=== PATIENT | female | born 1990 | race Caucasian/White ===

== ENCOUNTER 2019-11-02 11:38 | Emergency (ER) | payer OTHER ==
[~2019-11-02] VITALS: Ht 160 cm; Wt 54.4 kg
[~2019-11-02 11:38] MED LIST: Esgic Tablet1 EACH PO; GABA300 PO; LAMO100 PO; PROM25 PO; TOPI25; Zyprexa10 MG PO
[2019-11-02] MEDS ORDERED: ACYC200 PO (11:58)
[2019-11-02 12:23] LABS: BASOPHILS ABSOLUTE AUTO 0.09 K/mm3 (0.00-0.23); BASOPHILS PERCENT AUTO 1 % (0-2); EOSINOPHILS ABSOLUTE AUTO 0.13 K/mm3 (0.00-0.68); EOSINOPHILS PERCENT AUTO 1 % (0-6); Hematocrit 42.3 % (33.0-51.0); Hemoglobin 14.7 g/dL (11.5-16.0); IMMATURE GRAN ABSOLUTE AUTO 0.02 K/mm3 (0.00-0.10); IMMATURE GRAN PERCENT AUTO 0 % (0-1); LYMPHOCYTES ABSOLUTE AUTO 2.63 K/mm3 (0.84-5.20); LYMPHOCYTES PERCENT AUTO 28 % (21-46); MONOCYTES ABSOLUTE AUTO 0.55 K/mm3 (0.16-1.47); MONOCYTES PERCENT AUTO 6 % (4-13); Mean Corpuscular HGB Conc 34.8 g/dL (31.5-36.5); Mean Corpuscular Volume 92 fL (80-100); Mean Platelet Volume 9.6 fL (9.1-12.4); NEUTROPHILS ABSOLUTE AUTO 5.95 K/mm3 (1.96-9.15); NEUTROPHILS PERCENT AUTO 63 % (41-73); Platelet Count 340 K/mm3 (150-400); RDW Coefficient Variation 11.7 % (11.7-14.2); RDW Standard Deviation 39.7 fL (35.1-46.3); White Blood Cell Count 9.37 K/mm3 (4.00-11.30)
[2019-11-02 12:41] LABS: Alanine Aminotransfer (ALT/SGP 52 U/L (12-78); Albumin, Blood 4.4 g/dL (3.4-5.0); Albumin/Globulin Ratio 1.4 (0.8-1.8); Alk Phos 48 U/L (50-136); Anion Gap 10 mmol/L (6-16); Aspartate Aminotrans (AST/SGOT 28 U/L (12-37); Beta HCG, Quantitative, Serum <1 mIU/mL (0-3); Bilirubin, Total 0.7 mg/dL (0.1-1.0); Blood Urea Nitrogen 11 mg/dL (8-24); Bun/Creatinine Ratio 13.8 (12.0-20.0); CO2, Blood 23 mmol/L (21-32); Calcium, Blood 9.1 mg/dL (8.5-10.1); Chloride, Blood 103 mmol/L (98-108); Globulin, Blood 3.1 g/dL (2.2-4.0); Glomerular Filtration Rate >60 (60-); Glucose, Blood 82 mg/dL (70-99); Potassium, Blood 3.6 mmol/L (3.5-5.5); Sodium, Blood 136 mmol/L (136-145); Total Protein, Blood 7.5 g/dL (6.4-8.2)
[2019-11-02 12:49] LABS: Source, Urine Clean Catch
[2019-11-02 12:55] LABS: Appearance, Urine Clear (Clear); Bilirubin, Urine Neg (Neg); Blood, Urine 1+ (Neg); Color, Urine Yellow (P-Yellow); Glucose Qualitative, Urine Neg (Neg); Ketones, Urine Neg (Neg); Leukocyte Esterase, Urine Neg (Neg); Nitrite, Urine Neg (Neg); Protein, Urine Neg (Neg); Specific Gravity, Urine 1.005 (1.003-1.022); Urobilinogen, Urine NORM (Normal)
[2019-11-02 13:07] LABS: Bacteria Rare /hpf; Red Blood Cells, Urine 0-2 /hpf (0-2); Squamous Epithelial Cells Few /hpf (Few); White Blood Cells, Urine 0-2 /hpf (0-5)
[2019-11-02] MEDS ORDERED: Vitamin B Comple1 EA PO (13:09)
[2019-11-02] MEDS ORDERED: MELA3 PO (13:09)
[2019-11-02] MEDS ORDERED: Hair, Skin & N1 EACH PO (13:09)
[2019-11-02] MEDS ORDERED: MAGN84 PO (13:09)
== END 2019-11-02 16:05 | disposition home or self-care (01) ==
LOC: ER 11:38
PROVIDERS: Physician Assistant
DX: R19.7 Diarrhea, unspecified (principal); R10.30 Lower abdominal pain, unspecified; F17.210 Nicotine dependence, cigarettes, uncomplicated
CPT/HCPCS: 36415; 76770; 80053; 81001; 84702; 84703; 85025; 96360; 96361; 99284-25; J7030

== ENCOUNTER 2022-03-09 14:31 | Emergency (ER) | payer OTHER ==
[~2022-03-09] VITALS: Ht 170.2 cm; Wt 74.8 kg
[~2022-03-09 14:31] MED LIST changes: +ACYC200 PO; +Hair, Skin & N1 EACH PO; +MAGN84 PO; +MELA3 PO; +Vitamin B Comple1 EA PO
[2022-03-09] MEDS ORDERED: Xanax0.5 MG PO (16:05)
[2022-03-09] MEDS ORDERED: TRAZ50 PO (16:05)
== END 2022-03-09 16:20 | disposition home or self-care (01) ==
LOC: ER 14:31
DX: F41.0 Panic disorder [episodic paroxysmal anxiety] (principal); F17.210 Nicotine dependence, cigarettes, uncomplicated; Z79.899 Other long term (current) drug therapy; G47.00 Insomnia, unspecified
CPT/HCPCS: 99283

== ENCOUNTER 2022-11-17 15:29 | Emergency (ER) | payer OTHER ==
[~2022-11-17] VITALS: Ht 160 cm; Wt 52.2 kg
[~2022-11-17 15:29] MED LIST changes: +TRAZ50 PO; +Xanax0.5 MG PO
[2022-11-17 15:45] VITALS: BP 108/80
[2022-11-17] MEDS ORDERED: ONDA4ODT MM (18:59)
[2022-11-17] MEDS ORDERED: LORA.5 PO (18:59)
== END 2022-11-17 19:20 | disposition home or self-care (01) ==
LOC: ER 15:29
DX: F41.0 Panic disorder [episodic paroxysmal anxiety] (principal); Z79.899 Other long term (current) drug therapy; F17.210 Nicotine dependence, cigarettes, uncomplicated
CPT/HCPCS: 99282; A9270

== ENCOUNTER 2023-04-26 23:26 | Observation (INO) | payer OTHER ==
[~2023-04-26] VITALS: Ht 170.2 cm; Wt 49.9 kg
[~2023-04-26 23:26] MED LIST changes: +LORA.5 PO; +ONDA4ODT MM
[2023-04-27 00:07] LABS: BASOPHILS ABSOLUTE AUTO 0.15 K/mm3 (0.00-0.23); BASOPHILS PERCENT AUTO 1 % (0-2); EOSINOPHILS ABSOLUTE AUTO 0.43 K/mm3 (0.00-0.68); EOSINOPHILS PERCENT AUTO 3 % (0-6); Hemoglobin 13.5 g/dL (11.5-16.0); IMMATURE GRAN ABSOLUTE AUTO 0.04 K/mm3 (0.00-0.10); IMMATURE GRAN PERCENT AUTO 0 % (0-1); LYMPHOCYTES ABSOLUTE AUTO 2.44 K/mm3 (0.84-5.20); LYMPHOCYTES PERCENT AUTO 16 % (21-46); MONOCYTES PERCENT AUTO 8 % (4-13); Mean Corpuscular HGB 31.4 pg (26.0-34.0); Mean Corpuscular HGB Conc 34.6 g/dL (31.5-36.5); Mean Corpuscular Volume 91 fL (80-100); Mean Platelet Volume 9.5 fL (9.1-12.4); NEUTROPHILS ABSOLUTE AUTO 10.97 K/mm3 (1.96-9.15); NEUTROPHILS PERCENT AUTO 72 % (41-73); Platelet Count 394 K/mm3 (150-400); RDW Coefficient Variation 11.9 % (11.7-14.2); RDW Standard Deviation 39.2 fL (35.1-46.3); White Blood Cell Count 15.23 K/mm3 (4.00-11.30)
[2023-04-27 00:29] LABS: Ethanol (Alcohol), Blood, Med <3 mg/dL; Salicylate <1.7 mg/dL (2.8-20.0)
[2023-04-27 00:33] LABS: Acetaminophen, Random <2.0 ug/mL (10.0-30.0); Alanine Aminotransfer (ALT/SGP 26 U/L (12-78); Albumin, Blood 3.9 g/dL (3.4-5.0); Albumin/Globulin Ratio 1.2 (0.8-1.8); Alk Phos 54 U/L (50-136); Anion Gap 5 mmol/L (6-16); Aspartate Aminotrans (AST/SGOT 25 U/L (12-37); Bilirubin, Total 0.3 mg/dL (0.1-1.0); Blood Urea Nitrogen 18 mg/dL (8-24); Bun/Creatinine Ratio 16.2 (12.0-20.0); CO2, Blood 25 mmol/L (21-32); Calcium, Blood 9.1 mg/dL (8.5-10.1); Chloride, Blood 113 mmol/L (98-108); Creatinine, Blood 1.11 mg/dL (0.40-1.00); Globulin, Blood 3.3 g/dL (2.2-4.0); Glomerular Filtration Rate 66 (60-); Glucose, Blood 102 mg/dL (70-99); Sodium, Blood 143 mmol/L (136-145); Total Protein, Blood 7.2 g/dL (6.4-8.2)
[2023-04-27 00:48] LABS: Source, Urine Fem Cath
[2023-04-27 00:52] LABS: Bilirubin, Urine Neg (Neg); Blood, Urine Neg (Neg); Glucose Qualitative, Urine Neg (Neg); Ketones, Urine Neg (Neg); Leukocyte Esterase, Urine 1+ (Neg); Nitrite, Urine Neg (Neg); Protein, Urine 1+ (Neg); Specific Gravity, Urine 1.015 (1.003-1.022); Urobilinogen, Urine NORM (Normal)
[2023-04-27 01:06] LABS: Appearance, Urine Clear (Clear); Color, Urine Yellow (P-Yellow)
[2023-04-27 01:08] LABS: Bacteria Rare /hpf; Red Blood Cells, Urine Not Seen /hpf (0-2); Squamous Epithelial Cells Few /hpf (Few); White Blood Cells, Urine 0-2 /hpf (0-5)
[2023-04-27 01:18] LABS: U Amphetamine Screen DETECTED; U Barbituate Screen Not Detected; U Benzodiazapine Screen DETECTED; U Buprenorphine Screen Not Detected; U Cannabinoids Screen DETECTED; U Cocaine Screen Not Detected; U Methadone Screen Not Detected; U Methamphetamine Screen DETECTED; U Opiates Screen DETECTED; U Oxycodone Screen Not Detected; U Phencyclidine Screen Not Detected
[2023-04-27 08:15] VITALS: BP 106/60
== END 2023-04-27 17:03 | disposition home or self-care (01) ==
LOC: ER 23:26 → EOR 23:27
PROVIDERS: ADMIT Student in an Organized Health Care Education/Training Program
DX: F15.221 Other stimulant dependence with intoxication delirium (principal); R45.851 Suicidal ideations; F12.90 Cannabis use, unspecified, uncomplicated; F11.90 Opioid use, unspecified, uncomplicated; Z79.899 Other long term (current) drug therapy
CPT/HCPCS: 80053; 81001; 81025; 85025; 96372; 99285; G0378; G0480; J1630; J2060; P9612

== ENCOUNTER 2023-05-01 09:22 | Emergency (ER) | payer OTHER ==
[~2023-05-01] VITALS: Ht 162.6 cm; Wt 52.2 kg
[2023-05-01 10:20] LABS: BASOPHILS ABSOLUTE AUTO 0.11 K/mm3 (0.00-0.23); BASOPHILS PERCENT AUTO 2 % (0-2); EOSINOPHILS PERCENT AUTO 3 % (0-6); Hematocrit 41.3 % (33.0-51.0); Hemoglobin 14.1 g/dL (11.5-16.0); IMMATURE GRAN ABSOLUTE AUTO 0.01 K/mm3 (0.00-0.10); IMMATURE GRAN PERCENT AUTO 0 % (0-1); LYMPHOCYTES ABSOLUTE AUTO 2.25 K/mm3 (0.84-5.20); LYMPHOCYTES PERCENT AUTO 39 % (21-46); MONOCYTES PERCENT AUTO 9 % (4-13); Mean Corpuscular HGB Conc 34.1 g/dL (31.5-36.5); Mean Corpuscular Volume 94 fL (80-100); Mean Platelet Volume 9.5 fL (9.1-12.4); NEUTROPHILS ABSOLUTE AUTO 2.74 K/mm3 (1.96-9.15); NEUTROPHILS PERCENT AUTO 47 % (41-73); Platelet Count 403 K/mm3 (150-400); RDW Coefficient Variation 11.7 % (11.7-14.2); RDW Standard Deviation 40.4 fL (35.1-46.3); White Blood Cell Count 5.81 K/mm3 (4.00-11.30)
[2023-05-01] MEDS ORDERED: GABA300 PO (10:46)
[2023-05-01 11:15] LABS: Albumin, Blood 3.7 g/dL (3.4-5.0); Albumin/Globulin Ratio 1.1 (0.8-1.8); Bilirubin, Total 0.2 mg/dL (0.1-1.0); Bun/Creatinine Ratio 22.7 (12.0-20.0); Calcium, Blood 8.5 mg/dL (8.5-10.1); Creatinine, Blood 0.84 mg/dL (0.40-1.00); Globulin, Blood 3.5 g/dL (2.2-4.0); Potassium, Blood 4.6 mmol/L (3.5-5.5); Total Protein, Blood 7.2 g/dL (6.4-8.2)
[2023-05-01 11:38] LABS: Source, Urine Clean Catch
[2023-05-01 11:57] LABS: Appearance, Urine Clear (Clear); Bilirubin, Urine Neg (Neg); Blood, Urine 1+ (Neg); Glucose Qualitative, Urine Neg (Neg); Ketones, Urine Neg (Neg); Leukocyte Esterase, Urine Neg (Neg); Nitrite, Urine Neg (Neg); Protein, Urine Neg (Neg); Specific Gravity, Urine 1.005 (1.003-1.022); Urobilinogen, Urine NORM (Normal)
[2023-05-01 12:05] LABS: BASOPHILS ABSOLUTE AUTO 0.09 K/mm3 (0.00-0.23); BASOPHILS PERCENT AUTO 2 % (0-2); EOSINOPHILS ABSOLUTE AUTO 0.25 K/mm3 (0.00-0.68); EOSINOPHILS PERCENT AUTO 4 % (0-6); Hematocrit 40.8 % (33.0-51.0); Hemoglobin 13.6 g/dL (11.5-16.0); IMMATURE GRAN ABSOLUTE AUTO 0.02 K/mm3 (0.00-0.10); IMMATURE GRAN PERCENT AUTO 0 % (0-1); LYMPHOCYTES ABSOLUTE AUTO 2.32 K/mm3 (0.84-5.20); LYMPHOCYTES PERCENT AUTO 38 % (21-46); MONOCYTES ABSOLUTE AUTO 0.48 K/mm3 (0.16-1.47); MONOCYTES PERCENT AUTO 8 % (4-13); Mean Corpuscular HGB 31.6 pg (26.0-34.0); Mean Corpuscular HGB Conc 33.3 g/dL (31.5-36.5); Mean Corpuscular Volume 95 fL (80-100); Mean Platelet Volume 9.6 fL (9.1-12.4); NEUTROPHILS ABSOLUTE AUTO 2.89 K/mm3 (1.96-9.15); NEUTROPHILS PERCENT AUTO 48 % (41-73); Platelet Count 371 K/mm3 (150-400); RDW Coefficient Variation 11.8 % (11.7-14.2); RDW Standard Deviation 41.1 fL (35.1-46.3); Red Blood Cell Count 4.31 M/mm3 (3.80-5.20); White Blood Cell Count 6.05 K/mm3 (4.00-11.30)
[2023-05-01 12:07] LABS: Color, Urine Pale Yellow (P-Yellow)
[2023-05-01 12:08] LABS: Bacteria Rare /hpf; Squamous Epithelial Cells Few /hpf (Few); White Blood Cells, Urine 0-2 /hpf (0-5)
[2023-05-01 12:20] LABS: U Amphetamine Screen Not Detected; U Barbituate Screen Not Detected; U Benzodiazapine Screen Not Detected; U Buprenorphine Screen Not Detected; U Cannabinoids Screen DETECTED; U Cocaine Screen Not Detected; U Methadone Screen Not Detected; U Methamphetamine Screen Not Detected; U Opiates Screen Not Detected; U Oxycodone Screen Not Detected; U Phencyclidine Screen Not Detected
[2023-05-01 12:27] LABS: Alanine Aminotransfer (ALT/SGP 42 U/L (12-78); Albumin, Blood 3.5 g/dL (3.4-5.0); Albumin/Globulin Ratio 1.1 (0.8-1.8); Alk Phos 53 U/L (50-136); Anion Gap 5 mmol/L (6-16); Aspartate Aminotrans (AST/SGOT 29 U/L (12-37); Bilirubin, Total 0.3 mg/dL (0.1-1.0); Blood Urea Nitrogen 18 mg/dL (8-24); Bun/Creatinine Ratio 23.6 (12.0-20.0); CO2, Blood 25 mmol/L (21-32); Calcium, Blood 8.2 mg/dL (8.5-10.1); Chloride, Blood 110 mmol/L (98-108); Creatinine, Blood 0.76 mg/dL (0.40-1.00); Ethanol (Alcohol), Blood, Med <3 mg/dL; Globulin, Blood 3.3 g/dL (2.2-4.0); Glomerular Filtration Rate 105 (60-); Glucose, Blood 110 mg/dL (70-99); Potassium, Blood 4.2 mmol/L (3.5-5.5); Sodium, Blood 140 mmol/L (136-145); Total Protein, Blood 6.8 g/dL (6.4-8.2)
[2023-05-01 15:00] VITALS: BP 97/67
[2023-05-02] MEDS ORDERED: Ativan0.5 MG PO (09:11)
== END 2023-05-01 15:39 | disposition home or self-care (01) ==
LOC: ER 09:22
PROVIDERS: Emergency Medicine; Physician Assistant
DX: G35 Multiple sclerosis (principal); G62.9 Polyneuropathy, unspecified; F17.210 Nicotine dependence, cigarettes, uncomplicated; Z79.899 Other long term (current) drug therapy; Z88.0 Allergy status to penicillin
CPT/HCPCS: 36415; 70553; 80053; 81001; 83735; 84484; 84703; 85025; 93005; 93010; 96365-59; 96375-59; 96376-59; 99284-25; A9579; J2060; J2930

== ENCOUNTER 2023-05-19 11:54 | Emergency (ER) | payer OTHER ==
[~2023-05-19] VITALS: Ht 162.6 cm; Wt 56.7 kg
[~2023-05-19 11:54] MED LIST changes: +Ativan0.5 MG PO
[2023-05-19 12:20] LABS: BASOPHILS ABSOLUTE AUTO 0.09 K/mm3 (0.00-0.23); BASOPHILS PERCENT AUTO 1 % (0-2); EOSINOPHILS ABSOLUTE AUTO 0.34 K/mm3 (0.00-0.68); EOSINOPHILS PERCENT AUTO 2 % (0-6); Hematocrit 36.7 % (33.0-51.0); Hemoglobin 12.6 g/dL (11.5-16.0); IMMATURE GRAN ABSOLUTE AUTO 0.06 K/mm3 (0.00-0.10); IMMATURE GRAN PERCENT AUTO 0 % (0-1); LYMPHOCYTES PERCENT AUTO 17 % (21-46); MONOCYTES ABSOLUTE AUTO 1.03 K/mm3 (0.16-1.47); MONOCYTES PERCENT AUTO 7 % (4-13); Mean Corpuscular HGB 32.1 pg (26.0-34.0); Mean Corpuscular HGB Conc 34.3 g/dL (31.5-36.5); Mean Corpuscular Volume 93 fL (80-100); Mean Platelet Volume 9.2 fL (9.1-12.4); NEUTROPHILS ABSOLUTE AUTO 11.68 K/mm3 (1.96-9.15); NEUTROPHILS PERCENT AUTO 74 % (41-73); Platelet Count 447 K/mm3 (150-400); RDW Coefficient Variation 11.9 % (11.7-14.2); RDW Standard Deviation 41.1 fL (35.1-46.3); Red Blood Cell Count 3.93 M/mm3 (3.80-5.20)
[2023-05-19] MEDS ORDERED: Cymbalta20 MG PO (12:51)
[2023-05-19 12:53] LABS: Albumin, Blood 3.2 g/dL (3.4-5.0); Albumin/Globulin Ratio 0.9 (0.8-1.8); Bilirubin, Total 0.2 mg/dL (0.1-1.0); Bun/Creatinine Ratio 18.8 (12.0-20.0); Calcium, Blood 8.3 mg/dL (8.5-10.1); Creatinine, Blood 0.75 mg/dL (0.40-1.00); Globulin, Blood 3.4 g/dL (2.2-4.0); Potassium, Blood 4.2 mmol/L (3.5-5.5); Total Protein, Blood 6.6 g/dL (6.4-8.2)
[2023-05-19] MEDS ORDERED: ONDA4ODT MM (15:35)
[2023-05-19] MEDS ORDERED: REGLAN1013 PO (15:35)
[2023-05-19 15:45] VITALS: BP 90/56
== END 2023-05-19 16:10 | disposition left against medical advice (07) ==
LOC: ER 11:54
PROVIDERS: Student in an Organized Health Care Education/Training Program
DX: R83.5 Abnormal microbiological findings in cerebrospinal fluid (principal); R51.9 Headache, unspecified; R20.2 Paresthesia of skin; M54.9 Dorsalgia, unspecified
CPT/HCPCS: 36415; 80053; 83605; 85025; 87040; 96365; 96366; 96375; 99283-25; J0696; J1200; J1885; J2765; J7030

== ENCOUNTER 2023-12-20 18:39 | Observation (INO) | payer OTHER ==
[~2023-12-20] VITALS: Ht 160 cm; Wt 64.4 kg
[~2023-12-20 18:39] MED LIST changes: +Cymbalta20 MG PO; +GABAPENTIN600 MG PO; +REGLAN1013 PO
[2023-12-20 19:00] LABS: BASOPHILS ABSOLUTE AUTO 0.06 K/mm3 (0.00-0.23); BASOPHILS PERCENT AUTO 1 % (0-2); EOSINOPHILS PERCENT AUTO 5 % (0-6); Hematocrit 33.4 % (33.0-51.0); Hemoglobin 10.8 g/dL (11.5-16.0); IMMATURE GRAN ABSOLUTE AUTO 0.02 K/mm3 (0.00-0.10); IMMATURE GRAN PERCENT AUTO 0 % (0-1); LYMPHOCYTES ABSOLUTE AUTO 1.74 K/mm3 (0.84-5.20); LYMPHOCYTES PERCENT AUTO 29 % (21-46); MONOCYTES ABSOLUTE AUTO 0.49 K/mm3 (0.16-1.47); MONOCYTES PERCENT AUTO 8 % (4-13); Mean Corpuscular HGB 30.7 pg (26.0-34.0); Mean Corpuscular HGB Conc 32.3 g/dL (31.5-36.5); Mean Corpuscular Volume 95 fL (80-100); Mean Platelet Volume 9.5 fL (9.1-12.4); NEUTROPHILS ABSOLUTE AUTO 3.46 K/mm3 (1.96-9.15); NEUTROPHILS PERCENT AUTO 57 % (41-73); Platelet Count 378 K/mm3 (150-400); RDW Coefficient Variation 12.4 % (11.7-14.2); RDW Standard Deviation 43.4 fL (35.1-46.3); Red Blood Cell Count 3.52 M/mm3 (3.80-5.20); White Blood Cell Count 6.07 K/mm3 (4.00-11.30)
[2023-12-20 19:14] LABS: Alanine Aminotransfer (ALT/SGP 15 U/L (12-78); Albumin, Blood 3.2 g/dL (3.4-5.0); Albumin/Globulin Ratio 1.2 (0.8-1.8); Alk Phos 59 U/L (50-136); Anion Gap 8 mmol/L (3-11); Aspartate Aminotrans (AST/SGOT 9 U/L (12-37); Bilirubin, Total 0.2 mg/dL (0.1-1.0); Blood Urea Nitrogen 8 mg/dL (8-24); Bun/Creatinine Ratio 10.6 (12.0-20.0); CO2, Blood 24 mmol/L (21-32); Calcium, Blood 7.4 mg/dL (8.5-10.1); Chloride, Blood 110 mmol/L (98-108); Creatinine, Blood 0.75 mg/dL (0.40-1.00); Ethanol (Alcohol), Blood, Med <3 mg/dL; Globulin, Blood 2.7 g/dL (2.2-4.0); Glomerular Filtration Rate 106 (60-); Glucose, Blood 110 mg/dL (70-99); Magnesium, Blood 1.7 mg/dL (1.6-2.4); Potassium, Blood 3.7 mmol/L (3.5-5.5); Sodium, Blood 138 mmol/L (136-145); Total Protein, Blood 5.9 g/dL (6.4-8.2)
[2023-12-20] MEDS ORDERED: Ondansetron HCl 2 MG / ML 2ML Vial IV ONE (19:50)
[2023-12-20] MEDS ORDERED: Mag Sulfate 1 GM/D5% 100ML 100 ML IV ONE (20:55)
[2023-12-20 21:05] LABS: U Amphetamine Screen Not Detected; U Barbituate Screen Not Detected; U Benzodiazapine Screen Not Detected; U Buprenorphine Screen Not Detected; U Cannabinoids Screen DETECTED; U Cocaine Screen Not Detected; U Methadone Screen Not Detected; U Methamphetamine Screen Not Detected; U Opiates Screen DETECTED; U Oxycodone Screen Not Detected; U Phencyclidine Screen Not Detected
[2023-12-20] MEDS ORDERED: NS 1,000 ML IV SCH (21:10)
[2023-12-20 22:01] LABS: Prolactin 67.3 ng/mL
[2023-12-20] MEDS ORDERED: levETIRAcetam 1,000 MG in NS 100 ML IV ONE (22:15)
[2023-12-20] MEDS ORDERED: Naloxone HCl 0.4MG / ML 1ML Vial IV ONE (23:15)
[2023-12-20] MEDS ORDERED: Ketorolac Tromethamine 30mg Vial IV ONE (23:35)
[2023-12-21 00:29] LABS: Acetaminophen, Random 3.7 ug/mL (10.0-30.0); Salicylate <1.7 mg/dL (2.8-20.0)
[2023-12-21 01:32] VITALS: BP 88/57
[2023-12-21] MEDS ORDERED: CLON1 PO (01:40)
[2023-12-21] MEDS ORDERED: OMEP20ER PO (01:41)
[2023-12-21] MEDS ORDERED: NICOTINE LOZENGE2 MG MM (01:43)
[2023-12-21] MEDS ORDERED: ClonazePAM 1 MG Tab PO ONE (02:20)
[2023-12-21] MEDS ORDERED: TraZODone HCl 50 MG Tab PO ONE (02:25)
--- NOTE | 2023-12-21 02:59 | NUR ---
ARRIVAL TO PCU: PT ARRIVED TO PCU-11 VIA GURNEY AT 0115. PT ALERT, ORIENTED X4. ABLE TO MAKE NEEDS KNOWN TO STAFF. ABLE TO STAND AND TRANSFER SELF TO BED W/ SBA. SEIZURE PRECAUTIONS IN PLACE. 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 SBP 80'S, MAP >65. PT DENIES CHEST PAIN/PRESSURE/DIZZINESS. SPO2 >90% ON RA, RESPIRATIONS EVEN & UNLABORED. PT EDUCATED ON FALL PREVENTION & CALLING PRIOR TO GETTING OUT OF BED. ORIENTED TO ROOM/UNIT/CALL LIGHT. FIRE SAFETY/IGNITION RISK ASSESSED; PT IS A FORMER SMOKER BUT STATES SHE QUIT "YEARS AGO". NO IGNITION SOURCES PRESENT ON ADMISSION. INITIAL DNR CODE STATUS VERIFIED W/ PT. PT REQUESTS TO BE CHANGED BACK TO FULL CODE. PT STATES SHE ONLY SAID DNR BECAUSE SHE "WAS MAD ABOUT EVERYTHING IN ER" BUT WOULD ACTUALLY WISH TO BE RESUSCITATED IN AN EMERGENCY. CALL TO MD AN, ORDERS RECEIVED FOR FULL CODE STATUS. NO OTHER NEEDS AT THIS TIME. PT RESTING IN BED W/ CALL LIGHT IN REACH. BED ALARM ON FOR PT SAFETY AT THIS TIME.
[2023-12-21 04:49] VITALS: BP 86/59
--- NOTE | 2023-12-21 05:10 | NUR ---
END OF SHIFT NOTE: NO ACUTE EVENTS FOLLOWING ARRIVAL TO PCU, SEE PREVIOUS NOTE. PT RESTING IN BED AT THIS TIME W/ MOM AT BEDSIDE. NO OTHER NEEDS AT THIS TIME, CALL LIGHT IN REACH. WILL REPORT TO ONCOMING RN.
[2023-12-21 07:52] VITALS: BP 94/58
[2023-12-21] MEDS ORDERED: Gabapentin 400 MG Cap PO SCH (09:00)
[2023-12-21] MEDS ORDERED: Enoxaparin 40 MG/0.4 ML SYR SC SCH (09:00)
[2023-12-21] MEDS ORDERED: DULoxetine HCL 30 MG Cap DR PO SCH (09:00)
[2023-12-21] MEDS ORDERED: ClonazePAM 0.5 MG Tab PO PRN (10:15)
[2023-12-21 11:20] VITALS: BP 104/67
[2023-12-21] MEDS ORDERED: HYDR1TAB94 PO (12:52)
--- NOTE | 2023-12-21 13:29 | NUR ---
DISCHARGE SUMMARY PT A&Ox4, NO S/S OF SEIZURE. CALLS AND COMMUNICATES NEEDS APPROPRIATELY. BP STABLE, SINUS 80'S, DENIES CP/PRESSURE. SpO2> 92% RA, DENIES SOB. IND IN ROOM. C/O OF MILD CHRONIC PAIN. DISCHARGE INSTRUCTIONS PROVIDED WITH MOTHER AT BEDSIDE. PT WALKED OUT WITH CLINICAL STAFF AT APPROXIMATELY 1320. MOTHER HAS BELONGINGS.
[2023-12-21] MEDS ORDERED: TraZODone HCl 50 MG Tab PO SCH (21:00)
== END 2023-12-21 13:17 | disposition home or self-care (01) ==
LOC: ER 18:39 → PCU 18:40
PROVIDERS: Student in an Organized Health Care Education/Training Program; ADMIT Family Medicine
DX: R56.9 Unspecified convulsions (principal); R94.31 Abnormal electrocardiogram [ECG] [EKG]; F19.90 Other psychoactive substance use, unspecified, uncomplicated; D64.9 Anemia, unspecified; M79.7 Fibromyalgia; G47.00 Insomnia, unspecified; G62.9 Polyneuropathy, unspecified; F17.210 Nicotine dependence, cigarettes, uncomplicated; I95.9 Hypotension, unspecified; Z66 Do not resuscitate; Z79.899 Other long term (current) drug therapy; Z88.0 Allergy status to penicillin; W18.30XA Fall on same level, unspecified, initial encounter
CPT/HCPCS: 70450; 80053; 80320; 82947; 83735; 84146; 84703; 85025; 93005; 93010; 96365; 96366; 96367; 96372; 96375; 99285-25; A9270; G0378; G0480; J1650; J1885; J1953; J2310; J2405; J3475; J7030

== ENCOUNTER 2024-01-03 03:36 | Emergency (ER) | payer OTHER ==
[~2024-01-03] VITALS: Ht 160 cm; Wt 56.7 kg
[~2024-01-03 03:36] MED LIST changes: +CLON1 PO; +HYDR1TAB94 PO; +NICOTINE LOZENGE2 MG MM; +OMEP20ER PO
[2024-01-03 04:13] LABS: Source, Urine Clean Catch
[2024-01-03 04:13] LABS: BASOPHILS ABSOLUTE AUTO 0.08 K/mm3 (0.00-0.23); BASOPHILS PERCENT AUTO 1 % (0-2); EOSINOPHILS ABSOLUTE AUTO 0.15 K/mm3 (0.00-0.68); EOSINOPHILS PERCENT AUTO 2 % (0-6); Hematocrit 40.2 % (33.0-51.0); Hemoglobin 13.7 g/dL (11.5-16.0); IMMATURE GRAN ABSOLUTE AUTO 0.02 K/mm3 (0.00-0.10); IMMATURE GRAN PERCENT AUTO 0 % (0-1); LYMPHOCYTES ABSOLUTE AUTO 1.01 K/mm3 (0.84-5.20); LYMPHOCYTES PERCENT AUTO 15 % (21-46); MONOCYTES ABSOLUTE AUTO 0.44 K/mm3 (0.16-1.47); MONOCYTES PERCENT AUTO 6 % (4-13); Mean Corpuscular HGB 30.9 pg (26.0-34.0); Mean Corpuscular HGB Conc 34.1 g/dL (31.5-36.5); Mean Corpuscular Volume 91 fL (80-100); Mean Platelet Volume 9.5 fL (9.1-12.4); NEUTROPHILS ABSOLUTE AUTO 5.21 K/mm3 (1.96-9.15); NEUTROPHILS PERCENT AUTO 75 % (41-73); Platelet Count 417 K/mm3 (150-400); RDW Coefficient Variation 12.3 % (11.7-14.2); RDW Standard Deviation 41.1 fL (35.1-46.3); Red Blood Cell Count 4.43 M/mm3 (3.80-5.20); White Blood Cell Count 6.91 K/mm3 (4.00-11.30)
[2024-01-03 04:22] LABS: Bilirubin, Urine Neg (Neg); Blood, Urine 2+ (Neg); Glucose Qualitative, Urine Neg (Neg); Ketones, Urine 1+ (Neg); Leukocyte Esterase, Urine 1+ (Neg); Nitrite, Urine Neg (Neg); Protein, Urine 2+ (Neg); Urobilinogen, Urine NORM (Normal)
[2024-01-03 04:27] LABS: Appearance, Urine Hazy (Clear); Color, Urine Yellow (P-Yellow)
[2024-01-03 04:29] LABS: Bacteria Mod /hpf; Red Blood Cells, Urine 0-2 /hpf (0-2); Squamous Epithelial Cells Many /hpf (Few); White Blood Cells, Urine 0-2 /hpf (0-5)
[2024-01-03 04:29] LABS: Bun/Creatinine Ratio 13.9 (12.0-20.0); Calcium, Blood 8.6 mg/dL (8.5-10.1); Creatinine, Blood 0.79 mg/dL (0.40-1.00); Potassium, Blood 3.6 mmol/L (3.5-5.5)
[2024-01-03] MEDS ORDERED: Ketorolac Tromethamine 30mg Vial IV ONE (04:40)
[2024-01-03] MEDS ORDERED: NS 1,000 ML IV SCH (04:40)
[2024-01-03] MEDS ORDERED: Prochlorperazine Edisylate 10 mg Vial IV ONE (05:20)
[2024-01-03] MEDS ORDERED: DiphenhydrAMINE HCl 50 MG/ML 1ML Vial IV ONE (05:20)
[2024-01-03 06:03] VITALS: BP 120/78
[2024-01-03] MEDS ORDERED: Morphine Sulfate 4 MG/1 ML Injection IV ONE (06:10)
[2024-01-03] MEDS ORDERED: MIRALAX17 GM PO (06:54)
[2024-01-03] MEDS ORDERED: MAGCIT300 PO (06:54)
== END 2024-01-03 07:03 ==
LOC: ER 03:36
PROVIDERS: Emergency Medicine
DX: R10.31 Right lower quadrant pain (principal); R11.2 Nausea with vomiting, unspecified; F17.210 Nicotine dependence, cigarettes, uncomplicated; Z88.0 Allergy status to penicillin; Z79.899 Other long term (current) drug therapy
CPT/HCPCS: 74177; 80048; 81001; 84703; 85025; 87086; 96361; 96374; 96375; 99284-25; J0780; J1200; J1885; J2270; J7030; Q9967

== ENCOUNTER → 2024-04-13 | Outpatient (CLI) | payer OTHER ==
[~2024-04-13] MED LIST changes: +MAGCIT300 PO; +MIRALAX17 GM PO
[2024-04-14 16:55] LABS: U Amphetamine Screen Not Detected; U Barbituate Screen Not Detected; U Benzodiazapine Screen Not Detected; U Buprenorphine Screen Not Detected; U Cannabinoids Screen Not Detected; U Cocaine Screen Not Detected; U Methadone Screen Not Detected; U Methamphetamine Screen Not Detected; U Opiates Screen Not Detected; U Oxycodone Screen Not Detected; U Phencyclidine Screen Not Detected
== END ==
LOC: LAB 14:45 → LAB SHORT 14:45
PROVIDERS: Physician Assistant
DX: Z51.81 Encounter for therapeutic drug level monitoring (principal); Z79.891 Long term (current) use of opiate analgesic

== ENCOUNTER 2024-04-24 15:32 | Emergency (ER) | payer OTHER ==
[~2024-04-24] VITALS: Ht 160 cm; Wt 56.7 kg
[2024-04-24 16:13] VITALS: BP 118/72
[2024-04-24 16:37] LABS: BASOPHILS ABSOLUTE AUTO 0.07 K/mm3 (0.00-0.23); BASOPHILS PERCENT AUTO 1 % (0-2); EOSINOPHILS ABSOLUTE AUTO 0.04 K/mm3 (0.00-0.68); EOSINOPHILS PERCENT AUTO 0 % (0-6); Hemoglobin 12.8 g/dL (11.5-16.0); IMMATURE GRAN ABSOLUTE AUTO 0.03 K/mm3 (0.00-0.10); IMMATURE GRAN PERCENT AUTO 0 % (0-1); LYMPHOCYTES ABSOLUTE AUTO 1.39 K/mm3 (0.84-5.20); LYMPHOCYTES PERCENT AUTO 13 % (21-46); MONOCYTES ABSOLUTE AUTO 0.83 K/mm3 (0.16-1.47); MONOCYTES PERCENT AUTO 8 % (4-13); Mean Corpuscular HGB 30.9 pg (26.0-34.0); Mean Corpuscular HGB Conc 34.6 g/dL (31.5-36.5); Mean Corpuscular Volume 89 fL (80-100); Mean Platelet Volume 9.6 fL (9.1-12.4); NEUTROPHILS ABSOLUTE AUTO 8.25 K/mm3 (1.96-9.15); NEUTROPHILS PERCENT AUTO 78 % (41-73); Platelet Count 528 K/mm3 (150-400); RDW Coefficient Variation 12.3 % (11.7-14.2); RDW Standard Deviation 40.3 fL (35.1-46.3); Red Blood Cell Count 4.14 M/mm3 (3.80-5.20); White Blood Cell Count 10.61 K/mm3 (4.00-11.30)
[2024-04-24 16:58] LABS: Albumin, Blood 3.7 g/dL (3.4-5.0); Albumin/Globulin Ratio 1.1 (0.8-1.8); Bilirubin, Total 0.4 mg/dL (0.1-1.0); Bun/Creatinine Ratio 20.5 (12.0-20.0); Calcium, Blood 9.6 mg/dL (8.5-10.1); Creatinine, Blood 0.63 mg/dL (0.40-1.00); Globulin, Blood 3.5 g/dL (2.2-4.0); Potassium, Blood 3.1 mmol/L (3.5-5.5); Total Protein, Blood 7.2 g/dL (6.4-8.2)
[2024-04-24] MEDS ORDERED: CEPH500 PO (17:54)
== END 2024-04-24 18:16 | disposition home or self-care (01) ==
LOC: ER 15:32
PROVIDERS: Physician Assistant
DX: S90.822A Blister (nonthermal), left foot, initial encounter (principal); S90.821A Blister (nonthermal), right foot, initial encounter; F15.10 Other stimulant abuse, uncomplicated; F17.210 Nicotine dependence, cigarettes, uncomplicated; X58.XXXA Exposure to other specified factors, initial encounter; Z79.899 Other long term (current) drug therapy; Z88.0 Allergy status to penicillin
CPT/HCPCS: 80053; 85025; 99283

== ENCOUNTER 2024-04-24 23:32 | Emergency (ER) | payer OTHER ==
[~2024-04-24] VITALS: Ht 170.2 cm; Wt 68.0 kg
[~2024-04-24 23:32] MED LIST changes: +CEPH500 PO
[2024-04-24 23:46] VITALS: BP 110/74
[2024-04-24] MEDS ORDERED: Ibuprofen 400 MG Tab PO ONE (23:50)
== END 2024-04-25 00:30 | disposition home or self-care (01) ==
LOC: ER 23:32
DX: S90.822A Blister (nonthermal), left foot, initial encounter (principal); S90.821A Blister (nonthermal), right foot, initial encounter; F17.210 Nicotine dependence, cigarettes, uncomplicated; X58.XXXA Exposure to other specified factors, initial encounter; Z59.00 Homelessness unspecified; Z79.899 Other long term (current) drug therapy; Z88.0 Allergy status to penicillin
CPT/HCPCS: 99282; A9270

== ENCOUNTER → 2024-05-14 | Outpatient (CLI) | payer OTHER ==
[2024-05-14 15:58] LABS: Source, Urine Clean Catch
[2024-05-14 17:35] LABS: Bilirubin, Urine Neg (Neg); Blood, Urine 2+ (Neg); Color, Urine Yellow (P-Yellow); Glucose Qualitative, Urine Neg (Neg); Ketones, Urine Neg (Neg); Leukocyte Esterase, Urine 2+ (Neg); Nitrite, Urine Neg (Neg); Protein, Urine 1+ (Neg); Urobilinogen, Urine NORM (Normal)
[2024-05-14 17:42] LABS: Appearance, Urine Clear (Clear)
[2024-05-14 17:43] LABS: Bacteria Mod /hpf; Squamous Epithelial Cells Few /hpf (Few); White Blood Cells, Urine 25-50 /hpf (0-5)
== END ==
LOC: LAB SHORT 09:30 → LAB 09:30
PROVIDERS: Physician Assistant
DX: N39.0 Urinary tract infection, site not specified (principal)
CPT/HCPCS: 81001; 87077; 87086; 87186

== ENCOUNTER 2024-06-03 20:32 | Emergency (ER) | payer OTHER ==
[~2024-06-03] VITALS: Ht 162.6 cm; Wt 59.0 kg
[2024-06-03 20:40] VITALS: BP 132/93
[2024-06-03 21:14] LABS: BASOPHILS ABSOLUTE AUTO 0.08 K/mm3 (0.00-0.23); BASOPHILS PERCENT AUTO 1 % (0-2); EOSINOPHILS ABSOLUTE AUTO 0.47 K/mm3 (0.00-0.68); EOSINOPHILS PERCENT AUTO 7 % (0-6); Hematocrit 31.5 % (33.0-51.0); Hemoglobin 10.3 g/dL (11.5-16.0); IMMATURE GRAN ABSOLUTE AUTO 0.03 K/mm3 (0.00-0.10); IMMATURE GRAN PERCENT AUTO 0 % (0-1); LYMPHOCYTES ABSOLUTE AUTO 1.46 K/mm3 (0.84-5.20); LYMPHOCYTES PERCENT AUTO 22 % (21-46); MONOCYTES ABSOLUTE AUTO 0.78 K/mm3 (0.16-1.47); MONOCYTES PERCENT AUTO 12 % (4-13); Mean Corpuscular HGB 30.7 pg (26.0-34.0); Mean Corpuscular HGB Conc 32.7 g/dL (31.5-36.5); Mean Corpuscular Volume 94 fL (80-100); Mean Platelet Volume 9.5 fL (9.1-12.4); NEUTROPHILS ABSOLUTE AUTO 3.87 K/mm3 (1.96-9.15); NEUTROPHILS PERCENT AUTO 58 % (41-73); Platelet Count 294 K/mm3 (150-400); RDW Coefficient Variation 12.7 % (11.7-14.2); RDW Standard Deviation 43.5 fL (35.1-46.3); Red Blood Cell Count 3.36 M/mm3 (3.80-5.20); White Blood Cell Count 6.69 K/mm3 (4.00-11.30)
[2024-06-03 21:30] LABS: Source, Urine Clean Catch
[2024-06-03 21:34] LABS: Albumin/Globulin Ratio 0.9 (0.8-1.8); Bilirubin, Total 0.2 mg/dL (0.1-1.0); Bun/Creatinine Ratio 14.8 (12.0-20.0); Calcium, Blood 8.7 mg/dL (8.5-10.1); Creatinine, Blood 0.68 mg/dL (0.40-1.00); Globulin, Blood 3.3 g/dL (2.2-4.0); Total Protein, Blood 6.3 g/dL (6.4-8.2)
[2024-06-03] MEDS ORDERED: Furosemide 40 MG Tab PO ONE (21:40)
[2024-06-03] MEDS ORDERED: Lasix20 MG PO (21:40)
[2024-06-03 21:41] LABS: Bilirubin, Urine Neg (Neg); Blood, Urine Neg (Neg); Glucose Qualitative, Urine Neg (Neg); Ketones, Urine Neg (Neg); Leukocyte Esterase, Urine Neg (Neg); Nitrite, Urine Neg (Neg); Protein, Urine Neg (Neg); Urobilinogen, Urine NORM (Normal)
[2024-06-03] MEDS ORDERED: FURO20 PO (21:41)
[2024-06-03 21:47] LABS: Appearance, Urine Clear (Clear); Color, Urine Yellow (P-Yellow)
== END 2024-06-03 22:42 | disposition home or self-care (01) ==
LOC: ER 20:32
PROVIDERS: Student in an Organized Health Care Education/Training Program
DX: R60.0 Localized edema (principal); K21.9 Gastro-esophageal reflux disease without esophagitis; G62.9 Polyneuropathy, unspecified; F17.210 Nicotine dependence, cigarettes, uncomplicated; Z88.0 Allergy status to penicillin; Z79.899 Other long term (current) drug therapy
CPT/HCPCS: 80053; 81003; 85025; 93005; 93010; 99285-25; A9270

== ENCOUNTER 2024-11-17 19:01 | Emergency (ER) | payer OTHER ==
[~2024-11-17] VITALS: Ht 165.1 cm; Wt 70.3 kg
[~2024-11-17 19:01] MED LIST changes: +FURO20 PO; +Lasix20 MG PO
[2024-11-17] MEDS ORDERED: NS 1,000 ML IV SCH (19:20)
[2024-11-17 20:29] LABS: Source, Urine Clean Catch
[2024-11-17 20:39] LABS: Bilirubin, Urine Neg (Neg); Glucose Qualitative, Urine Neg (Neg); Ketones, Urine 3+ (Neg); Leukocyte Esterase, Urine 1+ (Neg); Protein, Urine 2+ (Neg); Specific Gravity, Urine 1.015 (1.003-1.022); Urobilinogen, Urine NORM (Normal)
[2024-11-17 20:47] LABS: Color, Urine Yellow (P-Yellow)
[2024-11-17 20:48] LABS: Red Blood Cells, Urine 0-2 /hpf (0-2); White Blood Cells, Urine 0-2 /hpf (0-5)
[2024-11-17] MEDS ORDERED: Ondansetron HCl 2 MG / ML 2ML Vial IV ONE (20:50)
[2024-11-17 21:01] LABS: Alanine Aminotransfer (ALT/SGP 24.0 U/L (12-78); Albumin, Blood 4.5 g/dL (3.4-5.0); Albumin/Globulin Ratio 1.5 (0.8-1.8); Anion Gap 10.0 mmol/L (3-11); Aspartate Aminotrans (AST/SGOT 46.0 U/L (12-37); Bilirubin, Total 0.9 mg/dL (0.1-1.0); Blood Urea Nitrogen 15.0 mg/dL (8-24); CO2, Blood 19.0 mmol/L (21-32); Calcium, Blood 9.4 mg/dL (8.5-10.1); Chloride, Blood 110.0 mmol/L (98-108); Creatinine, Blood 0.72 mg/dL (0.40-1.00); Globulin, Blood 3.1 g/dL (2.2-4.0); Glucose, Blood 103.0 mg/dL (70-99); Potassium, Blood 5.5 mmol/L (3.5-5.5); Sodium, Blood 133.0 mmol/L (136-145); Total Protein, Blood 7.6 g/dL (6.4-8.2)
[2024-11-17 21:01] LABS: BASOPHILS ABSOLUTE AUTO 0.05 K/mm3 (0.00-0.23); BASOPHILS PERCENT AUTO 1 % (0-2); EOSINOPHILS ABSOLUTE AUTO 0.02 K/mm3 (0.00-0.68); EOSINOPHILS PERCENT AUTO 0 % (0-6); Hematocrit 36.9 % (33.0-51.0); Hemoglobin 12.9 g/dL (11.5-16.0); IMMATURE GRAN ABSOLUTE AUTO 0.05 K/mm3 (0.00-0.10); IMMATURE GRAN PERCENT AUTO 1 % (0-1); LYMPHOCYTES ABSOLUTE AUTO 1.28 K/mm3 (0.84-5.20); LYMPHOCYTES PERCENT AUTO 14 % (21-46); MONOCYTES ABSOLUTE AUTO 0.54 K/mm3 (0.16-1.47); MONOCYTES PERCENT AUTO 6 % (4-13); Mean Corpuscular HGB Conc 35.0 g/dL (31.5-36.5); Mean Corpuscular Volume 87 fL (80-100); NEUTROPHILS ABSOLUTE AUTO 7.36 K/mm3 (1.96-9.15); NEUTROPHILS PERCENT AUTO 79 % (41-73); NRBC ABSOLUTE 0.00 K/mm3 (0.00-0.02); NRBC Auto 0.0 /100 WBC (0.0-0.2); RDW Coefficient Variation 13.9 % (11.7-14.2); RDW Standard Deviation 43.3 fL (35.1-46.3)
[2024-11-17 21:30] VITALS: BP 101/85
[2024-11-17] MEDS ORDERED: Ondansetron 4 MG SoluTab SL ONE (21:30)
[2024-11-17] MEDS ORDERED: RX Prepack 2 Tabs Ondansetron ODT 4MG UD ONE (21:35)
[2024-11-17] MEDS ORDERED: ONDA4ODT MM (21:37)
== END 2024-11-17 21:43 | disposition home or self-care (01) ==
LOC: ER 19:01
PROVIDERS: Student in an Organized Health Care Education/Training Program
DX: A08.4 Viral intestinal infection, unspecified (principal); K21.9 Gastro-esophageal reflux disease without esophagitis; F17.210 Nicotine dependence, cigarettes, uncomplicated; Z88.0 Allergy status to penicillin; Z79.899 Other long term (current) drug therapy; E87.1 Hypo-osmolality and hyponatremia
CPT/HCPCS: 80053; 81001; 84703; 85025; 87086; 99284; A9270

== ENCOUNTER 2025-01-03 10:37 | Emergency (ER) | payer OTHER ==
[~2025-01-03] VITALS: Ht 160 cm; Wt 59.0 kg
[2025-01-03 10:52] VITALS: BP 129/85
[2025-01-03 11:24] LABS: Source, Urine Clean Catch
[2025-01-03 11:35] LABS: Glucose Qualitative, Urine Neg (Neg); Ketones, Urine Neg (Neg); Leukocyte Esterase, Urine 3+ (Neg); Protein, Urine 2+ (Neg); Specific Gravity, Urine 1.020 (1.003-1.022); Urobilinogen, Urine 1+ (Normal)
[2025-01-03 11:41] LABS: Bilirubin, Urine Neg (Neg)
[2025-01-03 11:42] LABS: Color, Urine Orange (P-Yellow)
[2025-01-03] MEDS ORDERED: Ketorolac Tromethamine 30mg Vial IM ONE (11:50)
[2025-01-03] MEDS ORDERED: Ondansetron 4 MG SoluTab SL ONE (11:50)
[2025-01-03] MEDS ORDERED: CefTRIAXone 1000 MG Vial IM ONE (12:35)
[2025-01-03] MEDS ORDERED: NITR100CA PO (12:35)
== END 2025-01-03 12:49 | disposition home or self-care (01) ==
LOC: ER 10:37
PROVIDERS: Student in an Organized Health Care Education/Training Program
DX: N39.0 Urinary tract infection, site not specified (principal); Z88.0 Allergy status to penicillin; Z79.899 Other long term (current) drug therapy; Z79.2 Long term (current) use of antibiotics; K21.9 Gastro-esophageal reflux disease without esophagitis; F17.210 Nicotine dependence, cigarettes, uncomplicated
CPT/HCPCS: 76770; 81001; A9270; J0696; J1885

== ENCOUNTER 2025-02-27 03:39 | Emergency (ER) | payer OTHER ==
[~2025-02-27] VITALS: Ht 160 cm; Wt 56.7 kg
[~2025-02-27 03:39] MED LIST changes: +NITR100CA PO
[2025-02-27 04:05] LABS: BASOPHILS ABSOLUTE AUTO 0.07 K/mm3 (0.00-0.23); BASOPHILS PERCENT AUTO 1 % (0-2); EOSINOPHILS ABSOLUTE AUTO 0.06 K/mm3 (0.00-0.68); EOSINOPHILS PERCENT AUTO 1 % (0-6); Hematocrit 37.3 % (33.0-51.0); Hemoglobin 13.3 g/dL (11.5-16.0); IMMATURE GRAN ABSOLUTE AUTO 0.02 K/mm3 (0.00-0.10); IMMATURE GRAN PERCENT AUTO 0 % (0-1); LYMPHOCYTES ABSOLUTE AUTO 2.58 K/mm3 (0.84-5.20); LYMPHOCYTES PERCENT AUTO 39 % (21-46); MONOCYTES ABSOLUTE AUTO 0.56 K/mm3 (0.16-1.47); MONOCYTES PERCENT AUTO 9 % (4-13); Mean Corpuscular HGB Conc 35.7 g/dL (31.5-36.5); Mean Corpuscular Volume 93 fL (80-100); NEUTROPHILS ABSOLUTE AUTO 3.32 K/mm3 (1.96-9.15); NEUTROPHILS PERCENT AUTO 50 % (41-73); NRBC ABSOLUTE 0.00 K/mm3 (0.00-0.02); NRBC Auto 0.0 /100 WBC (0.0-0.2); Platelet Count 625 K/mm3 (150-400); RDW Coefficient Variation 12.5 % (11.7-14.2); RDW Standard Deviation 43.0 fL (35.1-46.3)
[2025-02-27] MEDS ORDERED: Ondansetron HCl 2 MG / ML 2ML Vial IV PRN (04:15)
[2025-02-27] MEDS ORDERED: Ketorolac Tromethamine 15mg Vial IV ONE (04:20)
[2025-02-27] MEDS ORDERED: NS 1,000 ML IV SCH (04:20)
[2025-02-27 04:28] LABS: Alanine Aminotransfer (ALT/SGP 28.0 U/L (12-78); Albumin, Blood 4.1 g/dL (3.4-5.0); Albumin/Globulin Ratio 1.3 (0.8-1.8); Anion Gap 9.0 mmol/L (3-11); Aspartate Aminotrans (AST/SGOT 25.0 U/L (12-37); Bilirubin, Total 0.4 mg/dL (0.1-1.0); Blood Urea Nitrogen 16.0 mg/dL (8-24); CO2, Blood 22.0 mmol/L (21-32); Calcium, Blood 9.2 mg/dL (8.5-10.1); Chloride, Blood 112.0 mmol/L (98-108); Creatinine, Blood 0.63 mg/dL (0.40-1.00); Globulin, Blood 3.1 g/dL (2.2-4.0); Glucose, Blood 103.0 mg/dL (70-99); Potassium, Blood 3.6 mmol/L (3.5-5.5); Sodium, Blood 139.0 mmol/L (136-145); Total Protein, Blood 7.2 g/dL (6.4-8.2)
[2025-02-27 04:47] LABS: Source, Urine Clean Catch
[2025-02-27 04:57] LABS: Bilirubin, Urine Neg (Neg); Glucose Qualitative, Urine Neg (Neg); Ketones, Urine 2+ (Neg); Leukocyte Esterase, Urine 1+ (Neg); Protein, Urine 2+ (Neg); Specific Gravity, Urine 1.025 (1.003-1.022); Urobilinogen, Urine NORM (Normal)
[2025-02-27 05:12] LABS: Color, Urine Yellow (P-Yellow)
[2025-02-27 05:13] LABS: Red Blood Cells, Urine 0-2 /hpf (0-2)
[2025-02-27] MEDS ORDERED: Prochlorperazine Edisylate 10 mg Vial IV ONE (05:25)
[2025-02-27] MEDS ORDERED: DiphenhydrAMINE HCl 50 MG/ML 1ML Vial IV ONE (05:25)
[2025-02-27 06:15] VITALS: BP 101/66
[2025-02-27] MEDS ORDERED: ONDA4ODT MM (06:24)
[2025-02-27] MEDS ORDERED: LOPE2C PO (06:24)
== END 2025-02-27 06:29 | disposition home or self-care (01) ==
LOC: ER 03:39
PROVIDERS: Emergency Medicine
DX: E86.0 Dehydration (principal); R10.31 Right lower quadrant pain; Z59.89 Other problems related to housing and economic circumstances; Z88.0 Allergy status to penicillin; Z79.899 Other long term (current) drug therapy; Z79.2 Long term (current) use of antibiotics; K21.9 Gastro-esophageal reflux disease without esophagitis; F17.210 Nicotine dependence, cigarettes, uncomplicated
CPT/HCPCS: 74177; 80053; 81001; 83690; 84703; 85025; 87086; 96374-59; 96375; 99284-25; J0780; J1200; J1885; J2405; J7030; Q9967

== ENCOUNTER 2025-03-02 20:49 | Observation (INO) | payer OTHER ==
[~2025-03-02] VITALS: Ht 162.6 cm; Wt 60.7 kg
[~2025-03-02 20:49] MED LIST changes: +LOPE2C PO
[2025-03-02] MEDS ORDERED: LORazepam 2 MG/ML 1ML Injection ONE (21:16)
[2025-03-02 21:17] LABS: BASOPHILS ABSOLUTE AUTO 0.11 K/mm3 (0.00-0.23); BASOPHILS PERCENT AUTO 1 % (0-2); EOSINOPHILS ABSOLUTE AUTO 0.10 K/mm3 (0.00-0.68); EOSINOPHILS PERCENT AUTO 1 % (0-6); Hematocrit 33.5 % (33.0-51.0); Hemoglobin 11.6 g/dL (11.5-16.0); IMMATURE GRAN ABSOLUTE AUTO 0.02 K/mm3 (0.00-0.10); IMMATURE GRAN PERCENT AUTO 0 % (0-1); LYMPHOCYTES ABSOLUTE AUTO 2.42 K/mm3 (0.84-5.20); LYMPHOCYTES PERCENT AUTO 29 % (21-46); MONOCYTES ABSOLUTE AUTO 0.65 K/mm3 (0.16-1.47); MONOCYTES PERCENT AUTO 8 % (4-13); Mean Corpuscular HGB Conc 34.6 g/dL (31.5-36.5); Mean Corpuscular Volume 95 fL (80-100); NEUTROPHILS ABSOLUTE AUTO 5.17 K/mm3 (1.96-9.15); NEUTROPHILS PERCENT AUTO 61 % (41-73); NRBC ABSOLUTE 0.00 K/mm3 (0.00-0.02); NRBC Auto 0.0 /100 WBC (0.0-0.2); Platelet Count 493 K/mm3 (150-400); RDW Coefficient Variation 12.7 % (11.7-14.2); RDW Standard Deviation 44.1 fL (35.1-46.3)
[2025-03-02] MEDS ORDERED: LORazepam 2 MG/ML 1ML Injection IV ONE (21:20)
[2025-03-02 22:12] LABS: Acetaminophen, Random <2.0 ug/mL (10.0-30.0); Alanine Aminotransfer (ALT/SGP 27 U/L (12-78); Albumin, Blood 3.5 g/dL (3.4-5.0); Albumin/Globulin Ratio 1.3 (0.8-1.8); Anion Gap 14 mmol/L (3-11); Aspartate Aminotrans (AST/SGOT 31 U/L (12-37); Bilirubin, Total 0.2 mg/dL (0.1-1.0); Blood Urea Nitrogen 14 mg/dL (8-24); CO2, Blood 23 mmol/L (21-32); Calcium, Blood 8.7 mg/dL (8.5-10.1); Chloride, Blood 108 mmol/L (98-108); Creatinine, Blood 0.68 mg/dL (0.40-1.00); Ethanol (Alcohol), Blood, Med <3 mg/dL; Globulin, Blood 2.6 g/dL (2.2-4.0); Glucose, Blood 109 mg/dL (70-99); Magnesium, Blood 1.8 mg/dL (1.6-2.4); Phosphorus, Blood 2.6 mg/dL (2.5-4.9); Potassium, Blood 3.6 mmol/L (3.5-5.5); Salicylate <1.7 mg/dL (2.8-20.0); Sodium, Blood 141 mmol/L (136-145); Total Protein, Blood 6.1 g/dL (6.4-8.2)
[2025-03-02] MEDS ORDERED: Ondansetron HCl 2 MG / ML 2ML Vial IV PRN (23:25)
[2025-03-02] MEDS ORDERED: FLU VACC TS2025-26(6MOS UP)/PF 45 MCG/0.5 ML SYRINGE IM SCH (23:25)
[2025-03-02] MEDS ORDERED: NS 1,000 ML IV ONE (23:25)
[2025-03-02] MEDS ORDERED: LORazepam 2 MG/ML 1ML Injection IV SCH (23:25)
[2025-03-03] MEDS ORDERED: Enoxaparin 40 MG/0.4 ML SYR SC SCH
[2025-03-03 00:25] LABS: Source, Urine Clean Catch
[2025-03-03 00:35] LABS: Bilirubin, Urine Neg (Neg); Glucose Qualitative, Urine Neg (Neg); Ketones, Urine Neg (Neg); Leukocyte Esterase, Urine Neg (Neg); Protein, Urine Neg (Neg); Specific Gravity, Urine 1.005 (1.003-1.022); Urobilinogen, Urine NORM (Normal)
[2025-03-03 00:43] LABS: Color, Urine Yellow (P-Yellow)
[2025-03-03 00:57] LABS: U Amphetamine Screen Not Detected; U Barbiturate Screen Not Detected; U Benzodiazapine Screen Not Detected; U Methamphetamine Screen Not Detected
[2025-03-03 00:58] LABS: U Buprenorphine Screen Not Detected; U Cannabinoids Screen Not Detected; U Cocaine Screen Not Detected; U Methadone Screen Not Detected; U Opiates Screen Not Detected; U Oxycodone Screen Not Detected; U Phencyclidine Screen Not Detected
[2025-03-03] MEDS ORDERED: Magnesium Sulf 2 GM/Water 50ML 50 ML IV ONE (02:50)
[2025-03-03] MEDS ORDERED: Potassium Phosphate Dibasic 30 MM in Dextrose 5% 500 ML IV STA (02:58)
[2025-03-03 03:26] VITALS: BP 109/65
[2025-03-03] MEDS ORDERED: NS 1,000 ML IV ONE (03:35)
[2025-03-03] MEDS ORDERED: VALA500 PO (03:44)
[2025-03-03] MEDS ORDERED: PRENATAL TABLE1 EAC2 PO (03:46)
[2025-03-03 04:02] LABS: BASOPHILS ABSOLUTE AUTO 0.02 K/mm3 (0.00-0.23); BASOPHILS PERCENT AUTO 0 % (0-2); EOSINOPHILS ABSOLUTE AUTO 0.00 K/mm3 (0.00-0.68); EOSINOPHILS PERCENT AUTO 0 % (0-6); Hematocrit 33.3 % (33.0-51.0); Hemoglobin 11.7 g/dL (11.5-16.0); IMMATURE GRAN ABSOLUTE AUTO 0.01 K/mm3 (0.00-0.10); IMMATURE GRAN PERCENT AUTO 0 % (0-1); LYMPHOCYTES ABSOLUTE AUTO 0.86 K/mm3 (0.84-5.20); LYMPHOCYTES PERCENT AUTO 10 % (21-46); MONOCYTES ABSOLUTE AUTO 0.28 K/mm3 (0.16-1.47); MONOCYTES PERCENT AUTO 3 % (4-13); Mean Corpuscular HGB Conc 35.1 g/dL (31.5-36.5); Mean Corpuscular Volume 93 fL (80-100); NEUTROPHILS ABSOLUTE AUTO 7.67 K/mm3 (1.96-9.15); NEUTROPHILS PERCENT AUTO 87 % (41-73); NRBC ABSOLUTE 0.00 K/mm3 (0.00-0.02); NRBC Auto 0.0 /100 WBC (0.0-0.2); Platelet Count 528 K/mm3 (150-400); RDW Coefficient Variation 12.6 % (11.7-14.2); RDW Standard Deviation 43.2 fL (35.1-46.3)
[2025-03-03 04:37] LABS: Alanine Aminotransfer (ALT/SGP 24.0 U/L (12-78); Albumin, Blood 3.6 g/dL (3.4-5.0); Albumin/Globulin Ratio 1.4 (0.8-1.8); Anion Gap 9.0 mmol/L (3-11); Aspartate Aminotrans (AST/SGOT 14.0 U/L (12-37); Bilirubin, Total 0.4 mg/dL (0.1-1.0); Blood Urea Nitrogen 7.0 mg/dL (8-24); CO2, Blood 27.0 mmol/L (21-32); Calcium, Blood 8.4 mg/dL (8.5-10.1); Chloride, Blood 107.0 mmol/L (98-108); Creatinine, Blood 0.54 mg/dL (0.40-1.00); Globulin, Blood 2.5 g/dL (2.2-4.0); Glucose, Blood 108.0 mg/dL (70-99); Potassium, Blood 3.3 mmol/L (3.5-5.5); Sodium, Blood 140.0 mmol/L (136-145); Total Protein, Blood 6.1 g/dL (6.4-8.2)
--- NOTE | 2025-03-03 07:34 | NUR ---
SHIFT SUMMARY: PT ARRIVES TO PCU 19 FROM THE ER VIA GURNEY AROUND 0300. TRANSFERRED PT TO HOSPITAL BED USING SLIDE SHEET. PT IS SOMNOLENT, BUT WAS ABLE TO STATE HER NAME AND BIRTHDAY. VSS ON RA. SR 60'S-70'S. NOT ABLE TO COMPLETE A FULL ASSESSMENT D/T PT'S MENTATION. PT HAS NOT HAD VISIBLE SEIZURE ACTIVITY SINCE ARRIVING TO FLOOR. PT HAS SPASTIC BUE MOVEMENTS, AND ODD FACIAL MOVEMENTS, ALMOST LIKE SHE IS NONVERBALLY TALKING. PT ARRIVES WITH MERCER CATHETER IN PLACE, DRAINING LARGE AMOUNTS OF PALE YELLOW URINE TO GRAVITY, CONNECTED TO A STAT LOCK. NO BM THIS SHIFT. PT HAS LARGE BRUISE TO LEFT PERIORBITAL AREA, AND LEFT LATERAL HIP, PICTURES IN CHART. REPLACING PT'S POTASSIUM AND MAGNESIUM. BED IN LOWEST POSITION, CALL LIGHT WITHIN REACH. SEIZURE PRECAUTIONS INITIATED. BED ALARM SET FOR PT'S SAFETY.
[2025-03-03 08:20] VITALS: BP 104/59
[2025-03-03] MEDS ORDERED: ATOM40 PO (09:54)
[2025-03-03] MEDS ORDERED: NICOTINE LOZENGE2 MG PO (09:55)
[2025-03-03] MEDS ORDERED: TRAZ150T57 PO (09:56)
[2025-03-03] MEDS ORDERED: MIRT15 PO (09:56)
[2025-03-03] MEDS ORDERED: PREG150 PO (09:57)
[2025-03-03] MEDS ORDERED: CLON1 PO (09:58)
[2025-03-03] MEDS ORDERED: MIRALAX17 GM PO (09:59)
[2025-03-03] MEDS ORDERED: MELO7.5 PO (10:01)
[2025-03-03 12:15] VITALS: BP 109/69
[2025-03-03] MEDS ORDERED: LEVE500 PO (13:59)
[2025-03-03 14:40] VITALS: BP 109/68
--- NOTE | 2025-03-03 15:21 | NUR ---
DISCHARGE SUMMARY PT A/O X4, FOLLOWS COMMANDS AND MAKES NEEDS KNOWN. DENIES ANY CHEST PAIN/PRESSURE/TIGHTNESS OR SOB. ALL VITAL SIGNS STABLE. PT DROWSY OFF AND ON BUT ABLE TO WAKE UP FOR CONVERSATIONS. SR ON MONITOR, NO CARDIAC EVENTS. NO SIGNIFICANT EVENTS HAPPENDED THIS SHIFT. PT DISCHARGED TO HOME, NO ACUTE DISTRESS AT THIS TIME. THIS RN REVEIEWED WRITTEN AND VERBAL DISCHARGE INSTRUCTIONS. PATIENT DENIES ANY QUESTIONS OR CONCERNS. IVs REMOVED WITH CATHETER IN TACT. BELONGINGS COLLECTED. PT DISCHARGED VIA WHEELCHAIR BY CAP AND HAT PRODUCTION SUPERVISOR WITH BOYFRIEND.
== END 2025-03-03 15:08 | disposition home or self-care (01) ==
LOC: ER 20:49 → PCU 20:50 → ERHOLD 20:50 → PCU 03-03 02:53
PROVIDERS: Student in an Organized Health Care Education/Training Program; ADMIT Internal Medicine
DX: R56.9 Unspecified convulsions (principal); K21.9 Gastro-esophageal reflux disease without esophagitis; G62.9 Polyneuropathy, unspecified; F17.210 Nicotine dependence, cigarettes, uncomplicated; Z88.0 Allergy status to penicillin; Z79.899 Other long term (current) drug therapy
CPT/HCPCS: 36415; 51702; 70450; 72125; 80053; 80320; 81003; 82550; 83605; 83735; 83880; 84100; 84132; 84703; 85025; 93005; 93010; 96361; 96365; 96372-59; 96374; 96375; 96376; 99285-25; A6590; A9270; G0378; G0480; J1650; J1953; J2060; J3475; J7030; J7060; J7120

== ENCOUNTER → 2025-04-12 | Outpatient (CLI) | payer OTHER ==
[~2025-04-12] MED LIST changes: +ATOM40 PO; +LEVE500 PO; +MELO7.5 PO; +MIRT15 PO; +NICOTINE LOZENGE2 MG PO; +PREG150 PO; +PRENATAL TABLE1 EAC2 PO; +TRAZ150T57 PO; +VALA500 PO
[2025-04-13 18:15] LABS: Bilirubin, Urine Neg (Neg); Color, Urine Yellow (P-Yellow); Glucose Qualitative, Urine Neg (Neg); Ketones, Urine Neg (Neg); Leukocyte Esterase, Urine 3+ (Neg); Protein, Urine 3+ (Neg); Specific Gravity, Urine 1.015 (1.003-1.022); Urobilinogen, Urine NORM (Normal)
[2025-04-13 18:48] LABS: White Blood Cells, Urine TNTC /hpf (0-5)
== END ==
LOC: LAB SHORT 15:40 → LAB 15:40
PROVIDERS: Nurse Practitioner Family
DX: N39.0 Urinary tract infection, site not specified (principal)
CPT/HCPCS: 81001; 87077; 87086; 87186

== ENCOUNTER 2025-04-24 07:52 | Emergency (ER) | payer OTHER ==
[~2025-04-24] VITALS: Ht 160 cm; Wt 63.5 kg
[2025-04-24 09:48] LABS: Source, Urine Clean Catch
[2025-04-24 09:52] LABS: Color, Urine Yellow (P-Yellow); Glucose Qualitative, Urine Neg (Neg); Ketones, Urine 3+ (Neg); Leukocyte Esterase, Urine Neg (Neg); Protein, Urine 2+ (Neg); Specific Gravity, Urine 1.025 (1.003-1.022); Urobilinogen, Urine NORM (Normal)
[2025-04-24 10:39] LABS: Alanine Aminotransfer (ALT/SGP 20.0 U/L (12-78); Albumin, Blood 4.0 g/dL (3.4-5.0); Albumin/Globulin Ratio 1.3 (0.8-1.8); Anion Gap 9.0 mmol/L (3-11); Aspartate Aminotrans (AST/SGOT 13.0 U/L (12-37); Bilirubin, Total 0.3 mg/dL (0.1-1.0); Blood Urea Nitrogen 12.0 mg/dL (8-24); CO2, Blood 23.0 mmol/L (21-32); Calcium, Blood 8.8 mg/dL (8.5-10.1); Chloride, Blood 107.0 mmol/L (98-108); Creatinine, Blood 0.64 mg/dL (0.40-1.00); Globulin, Blood 3.1 g/dL (2.2-4.0); Glucose, Blood 93.0 mg/dL (70-99); Potassium, Blood 3.6 mmol/L (3.5-5.5); Sodium, Blood 135.0 mmol/L (136-145); Total Protein, Blood 7.1 g/dL (6.4-8.2)
[2025-04-24 10:41] LABS: BASOPHILS ABSOLUTE AUTO 0.07 K/mm3 (0.00-0.23); BASOPHILS PERCENT AUTO 1 % (0-2); EOSINOPHILS ABSOLUTE AUTO 0.03 K/mm3 (0.00-0.68); EOSINOPHILS PERCENT AUTO 0 % (0-6); Hematocrit 38.7 % (33.0-51.0); Hemoglobin 13.5 g/dL (11.5-16.0); IMMATURE GRAN ABSOLUTE AUTO 0.02 K/mm3 (0.00-0.10); IMMATURE GRAN PERCENT AUTO 0 % (0-1); LYMPHOCYTES ABSOLUTE AUTO 1.95 K/mm3 (0.84-5.20); LYMPHOCYTES PERCENT AUTO 21 % (21-46); MONOCYTES ABSOLUTE AUTO 0.67 K/mm3 (0.16-1.47); MONOCYTES PERCENT AUTO 7 % (4-13); Mean Corpuscular HGB Conc 34.9 g/dL (31.5-36.5); Mean Corpuscular Volume 93 fL (80-100); NEUTROPHILS ABSOLUTE AUTO 6.42 K/mm3 (1.96-9.15); NEUTROPHILS PERCENT AUTO 70 % (41-73); NRBC ABSOLUTE 0.00 K/mm3 (0.00-0.02); NRBC Auto 0.0 /100 WBC (0.0-0.2); Platelet Count 390 K/mm3 (150-400); RDW Coefficient Variation 12.3 % (11.7-14.2); RDW Standard Deviation 42.0 fL (35.1-46.3)
[2025-04-24 10:44] LABS: Bilirubin, Urine 1+ (Neg)
[2025-04-24 10:46] LABS: Red Blood Cells, Urine 0-2 /hpf (0-2); White Blood Cells, Urine 0-2 /hpf (0-5)
[2025-04-24 13:15] VITALS: BP 19/78
[2025-04-28] MEDS ORDERED: NICOTINE LOZENGE2 MG MM (09:37)
[2025-04-28] MEDS ORDERED: AMIT25 (09:37)
[2025-04-28] MEDS ORDERED: PRENATAL DHA200 MG PO (09:38)
[2025-04-28] MEDS ORDERED: ONDA4 PO (09:38)
== END 2025-04-24 13:20 | disposition home or self-care (01) ==
LOC: ER 07:52
PROVIDERS: Emergency Medicine
DX: O99.891 Other specified diseases and conditions complicating pregnancy (principal); O21.9 Vomiting of pregnancy, unspecified; R10.9 Unspecified abdominal pain; F17.210 Nicotine dependence, cigarettes, uncomplicated; K21.9 Gastro-esophageal reflux disease without esophagitis; Z79.899 Other long term (current) drug therapy; Z88.0 Allergy status to penicillin
CPT/HCPCS: 76801; 76817; 80053; 81001; 84702; 85025; 99284-25

== ENCOUNTER 2025-05-03 10:00 | Day surgery (SDC) | payer OTHER ==
[2025-05-03] VITALS (13 sets, daily range): BP systolic 97–118; BP diastolic 56–91
[~2025-05-03] VITALS: Ht 160 cm; Wt 63.4 kg
[~2025-05-03 10:00] MED LIST changes: +AMIT25; +ONDA4 PO; +PRENATAL DHA200 MG PO
[2025-05-03] MEDS ORDERED: Doxycycline Mo100 M1 PO (10:27)
--- NOTE | 2025-05-03 10:51 | NUR ---
Ambulatory in Day Surgery History, Chart, Medications and Allergies reviewed before start of procedure. Pre-Op teaching done. Pt verbalizes understanding. Patient States Post-Procedure ride home has been arranged.
[2025-05-03] MEDS ORDERED: Midazolam HCl 1MG / ML 2ML Vial ONE (10:58)
[2025-05-03] MEDS ORDERED: Midazolam HCl 1MG / ML 2ML Vial IV PRN (11:00)
--- NOTE | 2025-05-03 11:02 | NUR ---
PATIENT VERY ANXIOUS, CRYING AND FIDGETY IN BED. SPOKE WITH DR WOODS, ANESTHESIOLOGIST FOR PRE MED. NEW ORDER TO GIVEN VERSED 1MG IVP X1; MED GIVEN.
--- NOTE | 2025-05-03 11:08 | NUR ---
GOOD RESULTS WITH VERSED. AT BEDSIDE AND TALKING WITH STAFF.
[2025-05-03] MEDS ORDERED: FentaNYL Citrate 50 MCG/ML 2 ML Injection ONE ×2 (11:11→13:39)
[2025-05-03] MEDS ORDERED: Phenylephrine HCl 100 MCG/ML-NS 10MLSYR (1MG/10ML) ONE (11:19)
[2025-05-03] MEDS ORDERED: Midazolam HCl 1MG / ML 2ML Vial IV SCH (12:10)
[2025-05-03] MEDS ORDERED: Sugammadex Sodium 200 MG/2ML SDV (100 MG/ML) ONE (12:21)
[2025-05-03] MEDS ORDERED: Rocuronium Bromide 10 MG/ML 5ML Injection IV ONE (12:21)
[2025-05-03] MEDS ORDERED: Ondansetron HCl 2 MG / ML 2ML Vial ONE (12:45)
[2025-05-03] MEDS ORDERED: Methylergonovine Maleate 0.2MG / ML 1ML Amp ONE (12:50)
[2025-05-03] MEDS ORDERED: Methylergonovine Maleate 0.2MG / ML 1ML Amp IM ONE (12:51)
[2025-05-03] MEDS ORDERED: Dexamethasone Sodium Phosphate 4 MG/ML 5ML VIAL IV PRN (13:20)
[2025-05-03] MEDS ORDERED: FentaNYL Citrate 50 MCG/ML 2 ML Injection IV PRN ×2 (13:20→13:25)
[2025-05-03] MEDS ORDERED: Ondansetron HCl 2 MG / ML 2ML Vial IV PRN (13:20)
[2025-05-03] MEDS ORDERED: Ketorolac Tromethamine 15mg Vial IV PRN (13:25)
[2025-05-03] MEDS ORDERED: Ketorolac Tromethamine 30mg Vial ONE (13:33)
--- NOTE | 2025-05-03 14:50 | NUR ---
PT STATES "I'M READY TO GO HOME AND GET IN MY OWN BED. PAIN IS DOWN A LITTLE." RATES PN 08/13.
== END 2025-05-03 14:52 | disposition home or self-care (01) ==
LOC: ORSCMMR 10:00 → ORSCSDS 11:00 → ORSCMMR 11:00 → ORD 11:00 → ORSCMMR 14:52
PROVIDERS: Obstetrics & Gynecology
PROC: 10D17ZZ Extraction of Products of Conception, Retained, Via Natural or Artificial Opening (ICD-10-PCS; principal; 2025-05-03 11:00)
DX: O02.1 Missed abortion (principal); K21.9 Gastro-esophageal reflux disease without esophagitis; K31.84 Gastroparesis; F41.9 Anxiety disorder, unspecified; F32.A Depression, unspecified; M79.7 Fibromyalgia; Z79.899 Other long term (current) drug therapy
CPT/HCPCS: 76998; 88305; 88342; 88374; A9270; J1885; J2210; J2250; J2371; J2405; J2704; J3010; J7120